=== PATIENT | female | born 1965 | race Caucasian/White ===

== ENCOUNTER → 2016-04-20 | Outpatient (CLI) | payer OTHER | LOC: FIMAGING 15:47 | DX: Z12.31 Encounter for screening mammogram for malignant neoplasm of breast (principal); Z85.3 Personal history of malignant neoplasm of breast; Z92.3 Personal history of irradiation; Z92.21 Personal history of antineoplastic chemotherapy | CPT/HCPCS: G0202 ==

== ENCOUNTER → 2017-05-27 | Outpatient (CLI) | payer OTHER | LOC: FIMAGING 14:10 | PROVIDERS: ATTEND Family Medicine | DX: Z12.31 Encounter for screening mammogram for malignant neoplasm of breast (principal); Z85.3 Personal history of malignant neoplasm of breast ==

== ENCOUNTER → 2018-07-13 | Outpatient (CLI) | payer OTHER | LOC: FIMAGING 15:07 | PROVIDERS: ATTEND Family Medicine | DX: Z12.31 Encounter for screening mammogram for malignant neoplasm of breast (principal) ==

== ENCOUNTER → 2018-08-10 | Outpatient (CLI) | payer OTHER | LOC: FIMAGING 14:38 ==